=== PATIENT | male | born 1960 | race Caucasian/White ===

== ENCOUNTER → 2016-12-20 | Outpatient (CLI) | payer BC ==
[2016-12-20 10:01] LABS: ALT 45 U/L (21-72); AST 29 U/L (17-59); Alkaline Phosphatase 61 U/L (38-126); Anion Gap 10 mmol/L; Blood Urea Nitrogen 10 mg/dL (9-20); Calcium 9.1 mg/dL (8.4-10.2); Carbon Dioxide 27 mmol/L (22-30); Chloride 96 mmol/L (98-107); Cholesterol 95 mg/dL (<200); Glucose 216 mg/dL (74-99); HDL Cholesterol 69 mg/dL (40-60); Non-African American GFR(MDRD) >60 (>60 ml/min/1.73 sqM); Potassium 5.1 mmol/L (3.5-5.1); Sodium 133 mmol/L (137-145); Total Bilirubin 0.7 mg/dL (0.2-1.3); Total Protein 6.9 g/dL (6.3-8.2); Triglycerides 34 mg/dL (<150)
== END | disposition home or self-care (01) ==
LOC: LABWHC1 08:31
PROVIDERS: ATTEND Internal Medicine Endocrinology, Diabetes & Metabolism
DX: E10.65 Type 1 diabetes mellitus with hyperglycemia (principal)
CPT/HCPCS: 36415; 80053; 80061; 82043

== ENCOUNTER 2017-07-16 08:41 | Day surgery (SDC) | payer BC ==
[2017-07-11 10:50] VITALS: BMI 22.2
[~2017-07-16 08:41] MED LIST: LACTATED RINGERS 1,000 ML IV SCH; LIDOCAINE 1% 20 ML VIAL (10MG/ML) FOR IV START INTRADERMA PRN
[2017-07-16 09:02] VITALS: RESP 16; TEMP 97.1
[2017-07-16 09:07] LABS: Glucose,Whole Blood 98 mg/dL (75-99)
[2017-07-16] MEDS ORDERED: PROPOFOL 10 MG/ML 20 ML VIAL IV ONE (09:56)
--- NOTE | 2017-07-16 10:19 | P.PCN ---
Date of Procedure: 07/16/17 Preoperative Diagnosis: Postoperative Diagnosis: Procedure(s) Performed: Procedure: Total colonoscopy. Preoperative diagnosis: Screening for neoplasia. Postoperative diagnosis: Exam within normal limits. Preparation: HalfLytely prep. Sedation: Was provided by anesthesia. Brief clinical history: The patient is a 56-year-old male who is referred for this evaluation for screening for neoplasia age being his risk factor. He had a prior exam more than 10 years ago. The patient has no abdominal complaints bleeding or anemia. Procedure: With the patient on his left lateral decubitus position and after informed consent and adequate sedation, the perianal area was inspected and it did not show any fissures or fistulas. There were no masses felt on digital rectal examination. The Olympus CFQ 160L video colonoscope was then inserted in the rectum in the usual fashion and advanced to the cecum. The mucosa appeared healthy. No polyps or tumors were seen or any obvious diverticular disease or other pathology. I retroflexed the endoscope in the rectum before the endoscope was withdrawn. The patient tolerated the procedure well. Plan: The patient was reassured. He will follow up with you as planned and I recommended repeat exam in 10 years. Implants: Indications for Procedure: Operative Findings: Description of Procedure:
[2017-07-16 10:34] VITALS: PULSE 51
[2017-07-16 10:52] VITALS: BP 151/84
== END 2017-07-16 10:55 | disposition home or self-care (01) ==
LOC: ORWHC2ENDO 08:41
DX: Z12.11 Encounter for screening for malignant neoplasm of colon (principal); I10 Essential (primary) hypertension; F17.200 Nicotine dependence, unspecified, uncomplicated; E11.9 Type 2 diabetes mellitus without complications; Z79.4 Long term (current) use of insulin; Z96.41 Presence of insulin pump (external) (internal); K21.9 Gastro-esophageal reflux disease without esophagitis; M19.90 Unspecified osteoarthritis, unspecified site; G62.9 Polyneuropathy, unspecified; Z79.899 Other long term (current) drug therapy
CPT/HCPCS: J2704; G0121

== ENCOUNTER → 2017-11-22 | Outpatient (CLI) | payer BC ==
--- NOTE | 2017-11-22 12:27 | XR ---
EXAMINATION TYPE: XR chest 2V DATE OF EXAM: 11/22/2017 COMPARISON: NONE HISTORY: Cough TECHNIQUE: Frontal and lateral views of the chest are obtained. FINDINGS: There is suspicious irregular right upper lung opacity. Left lung is clear. No pleural ef fusion or pneumothorax is seen bilaterally. The cardiac silhouette size is within normal limits. Th e osseous structures are intact. IMPRESSION: Probable right upper lobe pneumonia. Follow-up to resolution advised to rule out underly ing mass.
== END | disposition home or self-care (01) ==
LOC: RADXRMAIN 12:06
PROVIDERS: ATTEND Family Medicine
DX: R05 Cough (principal)
CPT/HCPCS: 71020

== ENCOUNTER → 2018-05-22 | Outpatient (CLI) | payer BC ==
[2018-05-22 09:27] LABS: ALT 32 U/L (21-72); AST 24 U/L (17-59); Albumin 4.4 g/dL (3.5-5.0); Alkaline Phosphatase 56 U/L (38-126); Anion Gap 11 mmol/L; Blood Urea Nitrogen 8 mg/dL (9-20); Calcium 9.6 mg/dL (8.4-10.2); Carbon Dioxide 27 mmol/L (22-30); Chloride 97 mmol/L (98-107); Cholesterol 96 mg/dL (<200); Glucose 141 mg/dL (74-99); HDL Cholesterol 53 mg/dL (40-60); LDL Cholesterol,Calculated 36 mg/dL (0-99); Potassium 4.9 mmol/L (3.5-5.1); Sodium 135 mmol/L (137-145); Total Bilirubin 0.9 mg/dL (0.2-1.3); Total Protein 6.9 g/dL (6.3-8.2); Triglycerides 35 mg/dL (<150)
[2018-05-22 17:39] LABS: Hemoglobin A1C 5.1 % (4.0-6.0)
== END | disposition home or self-care (01) ==
LOC: LABWHC1 08:47
PROVIDERS: ATTEND Internal Medicine Endocrinology, Diabetes & Metabolism
DX: E10.65 Type 1 diabetes mellitus with hyperglycemia (principal)
CPT/HCPCS: 36415; 80053; 80061; 82043; 82570; 83036; 84443

== ENCOUNTER → 2018-06-23 | Outpatient (CLI) | payer BC ==
--- NOTE | 2018-06-23 10:11 | CTL ---
EXAMINATION TYPE: CT Low Dose Lung DATE OF EXAM ORDERED: 06/23/2018 HISTORY: History of tobacco abuse for 35 years. Lung cancer screening CT DLP: 88.[address] CTDI: 2.5 mGy Automated exposure control for dose reduction was used. SCREENING VISIT: Initial COMPARISON: Chest radiograph dated 11/22/2017 TECHNIQUE: Low dose computed tomography scan was performed through the chest at 1 mm thick sections a nd reconstructed images in the coronal plane at [address] DIAGNOSTIC QUALITY: Satisfactory FINDINGS: LUNG NODULES: At the periphery of the right apical pleural-parenchymal scarring with associated traction bronchiect asis there are 2 more nodular solid appearing areas. The first is seen on series 4 image 37 and at th e right apex anterior right laterally measuring 4 mm and the second is seen on series 4 image 55 césar uring 3 mm. These could relate to neoplastic nodules or fibrosis. Follow-up is recommended. LUNGS: COPD: Severity: Mild Fibrosis: Severity: None Lymph nodes: Nonenlarged Other findings: Biapical pleural-parenchymal scarring is present, right greater than left. There is asymmetric right lateral tracheal wall thickening that appears polypoid and measures approxi mately 3 mm on series 3 image 52 through 60. This is nondependent and therefore not favored to repres ent debris. Polypoid lesion is suspected and further evaluation with direct visualization is recommen ded. This is located at the level of the sternal manubrium. RIGHT PLEURAL SPACE: Effusion: None Calcification: None Thickening: None Pneumothorax: None LEFT PLEURAL SPACE: Effusion: None Calcification: None Thickening: None Pneumothorax: None HEART: Heart Size: Normal Coronary calcification: None Pericardial effusion: None OTHER FINDINGS: Upper abdomen: There are numerous hypoattenuated hepatic lesions the largest measuring 5.2 cm and t he left hepatic lobe. This fluid attenuated compatible with a simple cyst. Although the majority of t he hepatic lesions appear very hypoattenuated on liver windows suggestive of additional cysts some of these are subcentimeter and too small to accurately characterize. There are numerous of these hepati c lesions (greater than 25). Solitary gallstone is partially seen Bony thorax: Moderate multilevel degenerative change of the thoracic spine. Supraclavicular region: No discrete adenopathy IMPRESSION: 1. Right apical pleural-parenchymal scarring with additional areas of solid peripheral nodularity adj acent to the scarring that could represent more focal nodular scar versus neoplastic pulmonary nodule s. Given the size consensus criteria recommends reevaluation in 12 months. 2. Polypoid nondependent lesion within the right lateral trachea for which direct visualization with laryngoscopy is recommended. 3. Numerous hypoattenuated hepatic lesions the largest measuring 5.2 cm. Although these appear cystic some of these are too small to accurately characterize and could be better assessed with enhanced MR . FOLLOW UP CT CHEST RECOMMENDATION: Annual low dose CT is recommended. CT LUNG RAD: Lung-Rad 2S Benign Appearance or Behavior
== END | disposition home or self-care (01) ==
LOC: RADCTMAIN 09:20
PROVIDERS: ATTEND Family Medicine
DX: J94.8 Other specified pleural conditions (principal); J39.8 Other specified diseases of upper respiratory tract; Z87.891 Personal history of nicotine dependence

== ENCOUNTER → 2019-09-15 | Outpatient (CLI) | payer BC ==
[2019-09-15 19:38] LABS: ALT 26 U/L (10-49); AST 23 U/L (14-35); African American GFR (CKD) 110.3 (60.0-200.0); Albumin/Globulin Ratio 2.33 (1.60-3.17); Alkaline Phosphatase 56 U/L (41-126); Carbon Dioxide 25.8 mmol/L (21.6-31.8); Chloride 100 mmol/L (96-109); Chol/HDL Ratio 1.71; Cholesterol 89 mg/dL (0-200); Globulin 1.8 g/dL (1.6-3.3); Glucose 133 mg/dL (70-110); Potassium 4.7 mmol/L (3.5-5.5); Sodium 135 mmol/L (135-145); Total Bilirubin 0.8 mg/dL (0.2-1.2); Triglycerides <50.0 mg/dL (0.0-149.0)
[2019-09-15 19:48] LABS: Hemoglobin A1C 6.1 % (4.0-6.0)
== END | disposition home or self-care (01) ==
LOC: LABWHC1 07:50
PROVIDERS: ATTEND Internal Medicine Endocrinology, Diabetes & Metabolism
DX: E10.65 Type 1 diabetes mellitus with hyperglycemia (principal)
CPT/HCPCS: 36415; 80053; 80061; 82043; 82570; 83036; 84443

== ENCOUNTER → 2019-10-27 | Outpatient (CLI) | payer BC ==
--- NOTE | 2019-10-27 13:59 | CTL ---
EXAMINATION TYPE: CT Low Dose Lung DATE OF EXAM ORDERED: 10/27/2019 HISTORY: 58-year-old male Personal history of tobacco use. Lung cancer screening CT DLP: [address] CTDI: 2.07 mGy Automated exposure control for dose reduction was used. SCREENING VISIT: 17 month follow-up after baseline COMPARISON: 06/23/2018 TECHNIQUE: Low dose computed tomography scan was performed through the chest at 1 mm thick sections a nd reconstructed images in the coronal and sagittal planes. Additional coronal MIP reconstructions ge nerated. CT DIAGNOSTIC QUALITY: Satisfactory FINDINGS: Heart normal size without pericardial effusion. Mildly ectatic ascending aorta 3.7 cm. Conventional arch vessel branching anatomy. No thoracic lymphadenopathy by CT size criteria. Mild biapical pleural-parenchymal scarring. More extensive within the right apex. Some associated nod ularity, axial image 58 measuring 6 mm is unchanged from 06/23/2018 compatible with scarring. Minimal emphysematous change. Mild diffuse bronchial wall thickening suggests bronchitis or chronic a sthma. No new suspicious pulmonary nodule or mass. No consolidation or pleural effusion. Visualized upper abdomen again shows innumerable hepatic cysts, the largest previously in the left he patic dome has collapsed now measuring 4.2 x 1.3 cm versus 5.7 cm, previously. Bones: Moderate degenerative disc disease mid to lower thoracic spine. IMPRESSION: 1. LungRADS 2 - benign; right greater than left biapical pleural scarring. Associated nodularity at t he right apex, stable for over a year. 2. COPD with minimal emphysematous change. RECOMMENDATION: 1. Continue annual low-dose lung cancer screening CT. 2. Smoking cessation. FOLLOW UP CT CHEST RECOMMENDATION: [address] LUNG RAD: Lung-Rad 2 Benign Appearance or Behavior
== END | disposition home or self-care (01) ==
LOC: RADCTMAIN 11:33
PROVIDERS: ATTEND Family Medicine
DX: Z12.2 Encounter for screening for malignant neoplasm of respiratory organs (principal); Z87.891 Personal history of nicotine dependence

== ENCOUNTER → 2021-01-13 | Outpatient (CLI) | payer BC ==
[2021-01-13 15:35] LABS: African American GFR (CKD) 95.7 (60.0-200.0); Albumin 4.6 g/dL (3.80-4.90); Albumin/Globulin Ratio 2.19 (1.60-3.17); Anion Gap 5.9 mmol/L (4.00-12.00); Calcium 9.1 mg/dL (8.7-10.3); Carbon Dioxide 28.1 mmol/L (21.6-31.8); Chol/HDL Ratio 2.08; Globulin 2.1 g/dL (1.6-3.3); Non-African American GFR(CKD) 82.6 (60.0-200.0); Potassium 4.2 mmol/L (3.5-5.5); Total Bilirubin 0.8 mg/dL (0.3-1.2); Total Protein 6.7 g/dL (6.2-8.2)
[2021-01-13 17:53] LABS: Hemoglobin A1C 6.8 % (4.0-6.0)
[2021-01-13 19:11] LABS: Urine Creatinine 38.1 mg/dL
== END | disposition home or self-care (01) ==
LOC: LABWHC1 08:39
PROVIDERS: ATTEND Internal Medicine Endocrinology, Diabetes & Metabolism
DX: E10.65 Type 1 diabetes mellitus with hyperglycemia (principal)
CPT/HCPCS: 36415; 80053; 80061; 82043; 82570; 83036; 84443

== ENCOUNTER → 2021-01-24 | Outpatient (CLI) | payer BC ==
--- NOTE | 2021-01-25 07:59 | XR ---
EXAMINATION TYPE: XR knee complete RT DATE OF EXAM: 01/24/2021 COMPARISON: NONE HISTORY: 60 year-old male right knee pain TECHNIQUE: 3 views FINDINGS: Meniscal chondrocalcinosis. There is some medial sided soft tissue swelling suggested. Large knee jennifer nt effusion. Scattered cartilaginous calcifications also demonstrated. No acute fracture, subluxation , dislocation seen. IMPRESSION: 1. Meniscal chondrocalcinosis and scattered cartilaginous calcifications. Given the large joint effus ion, consider gout or CPPD. 2. No acute osseous abnormality seen. MRI if clinically indicated given the medial sided soft tissue swelling and large joint effusion.
== END ==
LOC: RADXRMAIN 16:03
PROVIDERS: ATTEND Family Medicine
DX: M11.261 Other chondrocalcinosis, right knee (principal); M25.461 Effusion, right knee

== ENCOUNTER → 2021-02-15 | Outpatient (CLI) | payer BC ==
[2021-02-15 10:50] LABS: Basophils # (A) 0.04 X 10*3/uL (0.00-0.10); Basophils % (A) 0.8 %; Eosinophils # (A) 0.15 X 10*3/uL (0.04-0.35); Eosinophils % (A) 2.9 %; HCT 41.7 % (39.6-50.0); Lymphocytes # (A) 1.18 X 10*3/uL (0.90-5.00); Lymphocytes % (A) 22.7 %; MCH 32.2 pg (27.0-32.0); MCHC 33.6 g/dL (32.0-37.0); MCV 95.9 fL (80.0-97.0); Monocytes % (A) 9.6 %; Neutrophils # (A) 3.32 X 10*3/uL (1.80-7.70); Neutrophils % (A) 63.8 %; Platelet Count 441 X 10*3/uL (140-440); RBC 4.35 X 10*6/uL (4.40-5.60); RDW 12.8 % (11.5-14.5)
[2021-02-15 15:27] LABS: Gliadin AB IgA, Deaminated NEGATIVE (NEGATIVE); Gliadin AB IgA, Unit 0.2 U/mL; Gliadin AB IgG, Deaminated NEGATIVE (NEGATIVE)
[2021-02-15 15:56] LABS: Erythrocyte Sedimentation Rate 11 mm/Hr (0-20)
[2021-02-15 17:01] LABS: ALT 30 U/L (10-49); AST 24 U/L (14-35); African American GFR (CKD) 108.7 (60.0-200.0); Alkaline Phosphatase 74 U/L (41-126); BUN/Creat Ratio 11.11 Ratio (12.00-20.00); C Reactive Protein <0.4 mg/dL (0.0-0.8); Calcium 9.6 mg/dL (8.7-10.3); Chloride 95 mmol/L (96-109); Globulin 2.1 g/dL (1.6-3.3); Glucose 187 mg/dL (70-110); Non-African American GFR(CKD) 93.8 (60.0-200.0); Potassium 4.7 mmol/L (3.5-5.5); Sodium 131 mmol/L (135-145); Total Bilirubin 0.5 mg/dL (0.2-1.2); Total Protein 6.5 g/dL (6.2-8.2)
[2021-02-17 06:49] LABS: Calprotectin, Stool 408.5 mcg/g (<50)
== END | disposition home or self-care (01) ==
LOC: LABWHC1 07:41
PROVIDERS: ATTEND Internal Medicine
DX: R19.4 Change in bowel habit (principal)
CPT/HCPCS: 36415; 80053; 82656; 83516; 83993; 84439; 84443; 85025; 85652; 86140; 87045; 87046; 87328; 87329

== ENCOUNTER → 2021-06-12 | Outpatient (CLI) | payer BC ==
[2021-06-12 11:39] LABS: Folate, Serum 7.8 ng/mL
[2021-06-12 11:40] LABS: Basophils # (A) 0.05 X 10*3/uL (0.00-0.10); Basophils % (A) 0.8 %; Eosinophils # (A) 0.36 X 10*3/uL (0.04-0.35); Eosinophils % (A) 5.9 %; HCT 43.1 % (39.6-50.0); HGB 14.7 g/dL (13.0-17.0); Lymphocytes # (A) 1.45 X 10*3/uL (0.90-5.00); Lymphocytes % (A) 23.9 %; MCH 33.3 pg (27.0-32.0); MCHC 34.1 g/dL (32.0-37.0); MCV 97.5 fL (80.0-97.0); Mean Platelet Volume 9.2 fL (9.5-12.2); Monocytes # (A) 0.61 X 10*3/uL (0.20-1.00); Neutrophils # (A) 3.58 X 10*3/uL (1.80-7.70); Neutrophils % (A) 59.1 %; Platelet Count 503 X 10*3/uL (140-440); RBC 4.42 X 10*6/uL (4.40-5.60); RDW 13.1 % (11.5-14.5); WBC 6.07 X 10*3/uL (4.50-10.00)
[2021-06-12 11:50] LABS: ALT 16 U/L (10-49); AST 18 U/L (14-35); African American GFR (CKD) 108.7 (60.0-200.0); Albumin/Globulin Ratio 1.56 (1.60-3.17); Alkaline Phosphatase 66 U/L (41-126); BUN/Creat Ratio 8.89 Ratio (12.00-20.00); C Reactive Protein <0.4 mg/dL (0.0-0.8); Calcium 9.6 mg/dL (8.7-10.3); Carbon Dioxide 31.2 mmol/L (21.6-31.8); Chloride 98 mmol/L (96-109); Globulin 2.7 g/dL (1.6-3.3); Glucose 194 mg/dL (70-110); Non-African American GFR(CKD) 93.8 (60.0-200.0); Potassium 4.6 mmol/L (3.5-5.5); Sodium 134 mmol/L (135-145); Total Bilirubin 0.6 mg/dL (0.3-1.2); Total Protein 6.9 g/dL (6.2-8.2)
[2021-06-12 13:18] LABS: Hepatitis B Surface AB- Quant <3.5 mIU/mL; Hepatitis B Surface Antibody Non-Reactive (Non-Reactive); Hepatitis B Surface Antigen Non-Reactive (Non-Reactive)
[2021-06-12 13:32] LABS: Vitamin B12 >4000.0 pg/mL (200.0-944.0)
[2021-06-12 14:25] LABS: Erythrocyte Sedimentation Rate 13 mm/Hr (0-20)
== END | disposition home or self-care (01) ==
LOC: LABWHC1 07:01
PROVIDERS: ATTEND Internal Medicine
DX: K51.50 Left sided colitis without complications (principal)
CPT/HCPCS: 36415; 80053; 82306; 82607; 82746; 85025; 85652; 86140; 86480; 86704; 86706; 87340

== ENCOUNTER → 2022-04-10 | Outpatient (CLI) | payer BC ==
[2022-04-10 14:56] LABS: Albumin 4.6 g/dL (3.8-4.9); Albumin/Globulin Ratio 1.84 (1.60-3.17); BUN/Creat Ratio 11.78 Ratio (12.00-20.00); Blood Urea Nitrogen 10.6 mg/dL (9.0-27.0); Calcium 9.5 mg/dL (8.7-10.3); Globulin 2.5 g/dL (1.6-3.3); HDL Cholesterol 55.4 mg/dL (40.00-60.00); Non-African American GFR(CKD) 93.2 (60.0-200.0); Potassium 4.5 mmol/L (3.5-5.5); Total Bilirubin 0.6 mg/dL (0.30-1.20); Total Protein 7.1 g/dL (6.2-8.2); Triglycerides 21.9 mg/dL (0.00-149.00)
[2022-04-10 15:07] LABS: Chol/HDL Ratio 1.72 Ratio; LDL Cholesterol,Direct Reflex 37.6 mg/dL (0.00-129.00)
[2022-04-10 20:24] LABS: Microalbumin Creatinine Ratio <30 mg/g Creat (0-30)
== END | disposition home or self-care (01) ==
LOC: LABWHC1 07:24
PROVIDERS: ATTEND Internal Medicine Endocrinology, Diabetes & Metabolism
DX: E10.65 Type 1 diabetes mellitus with hyperglycemia (principal)
CPT/HCPCS: 36415; 80053; 80061; 82043; 82570; 83036; 83721; 84443

== ENCOUNTER → 2022-10-09 | Outpatient (CLI) | payer BC ==
[2022-10-09 11:30] LABS: ALT 29 U/L (10-49); AST 27 U/L (14-35); African American GFR (CKD) 109.8 (60.0-200.0); Albumin 4.5 g/dL (3.8-4.9); Albumin/Globulin Ratio 1.85 (1.60-3.17); Alkaline Phosphatase 65 U/L (41-126); Blood Urea Nitrogen 10.8 mg/dL (9.0-27.0); Carbon Dioxide 27.6 mmol/L (20.0-27.5); Chloride 97 mmol/L (96-109); Chol/HDL Ratio 1.79 Ratio; Globulin 2.4 g/dL (1.6-3.3); Glucose 254 mg/dL (70-110); LDL Cholesterol,Calculated 37.1 mg/dL (0.0-131.0); Non-African American GFR(CKD) 94.7 (60.0-200.0); Potassium 4.9 mmol/L (3.5-5.5); Sodium 134 mmol/L (135-145); Total Protein 6.9 g/dL (6.2-8.2); VLDL Calculation 5.16 mg/dL (5.00-40.00)
[2022-10-09 18:58] LABS: Microalbumin Creatinine Ratio <30 mg/g Creat (0-30); Urine Creatinine 37.9 mg/dL (39.0-259.0)
== END | disposition home or self-care (01) ==
LOC: LABWHC1 07:10
PROVIDERS: ATTEND Internal Medicine Endocrinology, Diabetes & Metabolism
DX: E10.65 Type 1 diabetes mellitus with hyperglycemia (principal)
CPT/HCPCS: 36415; 80053; 80061; 82043; 82570; 83036; 84443

== ENCOUNTER → 2023-10-08 | Outpatient (CLI) | payer BC ==
[2023-10-08 11:14] LABS: ALT 39 U/L (10-49); AST 35 U/L (14-35); Albumin 4.6 g/dL (3.8-4.9); Alkaline Phosphatase 68 U/L (41-126); BUN/Creat Ratio 14.11 Ratio (12.00-20.00); Blood Urea Nitrogen 12.7 mg/dL (9.0-27.0); Calcium 9.6 mg/dL (8.7-10.3); Carbon Dioxide 25.7 mmol/L (21.6-31.8); Chloride 97 mmol/L (96-109); Chol/HDL Ratio 1.53 Ratio; Globulin 2.3 g/dL (1.6-3.3); Glucose 169 mg/dL (70-110); LDL Cholesterol,Calculated 26.6 mg/dL (0.0-131.0); Potassium 4.9 mmol/L (3.5-5.5); Sodium 134 mmol/L (135-145); Total Bilirubin 0.5 mg/dL (0.3-1.2); Total Protein 6.9 g/dL (6.2-8.2)
[2023-10-08 13:28] LABS: Microalbumin Creatinine Ratio <29 mg/g Cr (0-30); Urine Creatinine 40.8 mg/dL (39.0-259.0)
== END | disposition home or self-care (01) ==
LOC: LABWHC1 06:59
PROVIDERS: ATTEND Internal Medicine Endocrinology, Diabetes & Metabolism
DX: E10.65 Type 1 diabetes mellitus with hyperglycemia (principal)
CPT/HCPCS: 36415; 80053; 80061; 82043; 82570; 83036; 84443

== ENCOUNTER → 2024-07-24 | Outpatient (CLI) | payer BC ==
[2024-07-24 15:58] LABS: ALT 30 U/L (10-49); AST 24 U/L (14-35); Albumin 4.5 g/dL (3.8-4.9); Albumin/Globulin Ratio 1.96 Ratio (1.60-3.17); Alkaline Phosphatase 69 U/L (41-126); BUN/Creat Ratio 12.62 Ratio (12.00-20.00); Blood Urea Nitrogen 10.1 mg/dL (9.0-27.0); Calcium 9.5 mg/dL (8.7-10.3); Carbon Dioxide 23.7 mmol/L (21.6-31.8); Chloride 98 mmol/L (96-109); Chol/HDL Ratio 1.93 Ratio; Globulin 2.3 g/dL (1.6-3.3); Glucose 104 mg/dL (70-110); LDL Cholesterol,Calculated 38.3 mg/dL (0.0-131.0); Potassium 4.7 mmol/L (3.5-5.5); Sodium 133 mmol/L (135-145); Total Bilirubin 0.4 mg/dL (0.3-1.2); Total Protein 6.8 g/dL (6.2-8.2); VLDL Calculation 5.52 mg/dL (5.00-40.00)
[2024-07-24 21:39] LABS: Microalbumin Creatinine Ratio <19 mg/g Cr (0-30); Urine Creatinine 61.8 mg/dL (39.0-259.0)
== END | disposition home or self-care (01) ==
LOC: LABWHC1 07:46
PROVIDERS: ATTEND Internal Medicine Endocrinology, Diabetes & Metabolism
DX: E10.65 Type 1 diabetes mellitus with hyperglycemia (principal)
CPT/HCPCS: 36415; 80053; 80061; 82043; 82570; 83036; 84443

== ENCOUNTER → 2025-05-31 | Outpatient (CLI) | payer BC ==
--- NOTE | 2025-05-31 08:05 | XR ---
EXAMINATION TYPE: XR ankle complete LT DATE OF EXAM: 05/31/2025 7:11 AM COMPARISON: None CLINICAL INDICATION: Male, 64 years old with history of R22.42 LOCALIZED SWELLING, MASS AND LUMP, LEF T LOW; PHH, pain TECHNIQUE: XR ankle complete LT; frontal, lateral and oblique projections. FINDINGS: There is no evidence of acute osseous pathology. No evidence of subluxation or dislocation. Kager's fat pad is intact. Mild soft tissue swelling around the ankle. No radiopaque foreign bodies are ident ified. Multifocal degeneration changes throughout the joints of the foot with osteophyte formation an d joint space narrowing. IMPRESSION: 1. No evidence of acute fracture. 2. Subcutaneous swelling around the ankle likely secondary to underlying soft tissue injury. 3. Mild multifocal degeneration changes of the joints of the ankle. [facility], , 05/31/2025 8:02 AM
== END | disposition home or self-care (01) ==
LOC: RADXRMAIN 07:00
PROVIDERS: ATTEND Family Medicine
DX: M19.072 Primary osteoarthritis, left ankle and foot (principal)